=== PATIENT | female | born 2005 | race Caucasian/White ===

== ENCOUNTER 2024-06-05 01:37 | Emergency (ER) | payer BC ==
--- OUTSIDE RECORDS SUMMARY | 2024-06-05 01:43 | XMS REPORT | Continuity of Care Document ---
Author Name Unknown Address [address] [address] [place] [address] [facility] Address [address] [address] [place] [address] Care Team Providers Care News Videotape Editor Name Role Phone Shar Bustamante Attending Clinician Unavailable Katey Raphael Attending Clinician Unavailable Nicole Gaviria Attending Clinician UnavailMendoza Woodward Attending Clinician Unavailable GC_BVWC_Perrone_J Attending Clinician UnavailMONIE Olguin Attending Clinician Urbano Kaplan Attending Clinician Unavailab nails GC_BVWC_Perrone_J Admitting Clinician Unavailboo paulino Payers Payer Name Policy Type Policy Number Effective Date Expirati on Date Source [place] [id number] 2021 00:00:00 Allergies, Adverse Reactions, Alerts Allergy Name Allergy Type Status Severity Reaction(s) Onset Date Inactive Date Treating Clinician Comments Source No Known Drug Allergie s Allergy to substanc e Active 2022-03 14:01: 51 [facility] No Known Drug Allergie s DA Active U 2022-03 00:00: 00 [facility] Social History Social Habit Start Date Stop Date Quantity Comments Source Sex Assigned At 2005 00:00:00 2005 00:00:00 Female [facility] Smoking Status Start Date Stop Date Source Unknown if ever smoked Madis on [facility] Medications Ordered Medication Name Filled Medication Name Start Date Stop Date Current Medication? Ordering Clinician Indication Dosage Frequency Signature (SIG) Comments Components Source Promethazin e Hcl 03-31 15:28: 17 No 12.5MG Every 6 Hours [facility] Promethazin e Hcl 03-31 01:00: 00 No 12.5MG Every 6 Hours [facility] Acetaminoph en W/ Codeine (Tylenol/Co deine Elixir) 1 ML Ml 03-31 01:00: 00 No 5ML Q6H [facility] Procedures Procedure Date / Time Performed Performing Clinician Source CT Stone Protocol 2023-01-04 13:09:00 [facility] EKG 12 Lead in Emergency Room 2021-08-08 12:38:00 [facility] XR Chest Pa & Lat STANDARD 2021-08-08 11:46:00 [facility] Group A Streptococcus Screen (SOBEIDA) 2021-08-08 00:00:00 [facility] Encounters Start Date/Time End Date/Time Encounter Type Admission Type Attending Clinicians Care Facility Care Department Encounter ID Source 2024-01-21 23:52:00 2024-01-22 02:34:00 Emergency ER Shar Bustamante STLSJX STLSJX [id number] STLSJX 2023-01-05 00:15:00 2023-01-05 04:32:00 Emergency ER Katey Raphael STLSJM STLSJM [id number] [facility] 2023-01-04 12:31:00 2023-01-04 16:42:00 Departed Emergency [id number] [facility] EMERGENCY SERVICES [id number] [facility] 2023-01-04 12:31:00 2023-01-04 16:42:00 Emergency ER Nicole Gaviria STLSX STLSJX [id number] STLSJX 2021-08-08 11:09:00 2021-08-08 15:25:00 Emergency ER Mendoza Khan STLENARDM STLSM [id number] [facility] 2021-08-08 11:09:00 2021-08-08 15:25:00 Departed Emergency [id number] [facility]-EMERGEN CY SERVICES/MS [facility] [id number] [facility] 2021-06-03 03:51:00 2021-06-03 03:51:00 Outpatient GC_BVWC_Per rone_J PRIV PRIV [id number] [facility] 2021-02-08 18:11:00 2021-02-08 18:12:00 [id number] [facility] 2020-04-01 12:07:00 2020-04-01 16:17:00 Emergency ER Urbano Cast STLSJX STLSJX [id number] STLSJX 2020-03-31 10:18:00 2020-03-31 14:53:00 Emergency ER Urbano Cast STLSJX STLSJX [id number] STLSJX Results Test Description Test Time Test Comments Results Result Co mments Source PENDING 2 SCulture, [id number] 13:04:00* Test Item Value Reference Range Interpretation Comme nts Culture, Urine (test code = URC) Routine susceptibility testing of Staphylococcus Culture, Urine (test code = URC1) uncomplicated urinary tract infections. O:SSAP (test code = SSAP) Staphylococcus saprophyticus Culture, Urine (test code = URC1.1) QUANTITATION: Culture, Urine (test code = URC1.1) 50,000 TO 75,000 cfu/mL H [id number] 03:46:00* Test Item Value Reference Range Interpretation Comme nts Toxicology (test code = WADE) Not Detected NotDetected Toxicology (test code = PCP) Not Detected NotDetected Toxicology (test code = COCN) Not Detected NotDetected Toxicology (test code = METHAMPU) Not Detected NotDetected Toxicology (test code = OPIA) Not Detected NotDetected Toxicology (test code = AMPHU) Not Detected NotDetected Toxicology (test code = KIKE) Not Detected NotDetected Toxicology (test code = TRICY) Not Detected NotDetected Toxicology (test code = MTD) Not Detected NotDetected Toxicology (test code = LUCIANA) Not Detected NotDetected Toxicology (test code = OXYCOD) Not Detected NotDetected Toxicology (test code = PPX) Not Detected NotDetected Toxicology (test code = MTCUTOFF) See_Comment The [employer] Powerx Profile-V Panel for Qualitative Drugs ofAbuse assays are for presumptive screening testing only.The drug class and detection limits are as follows:Drug Class Detection LimitAmphetamine 500 ng/mL*Barbiturates 200 ng/mLBenzodiazepines 150 ng/mL*Cocaine 150 ng/mL*Methamphetamine 500 ng/mL*Methadone 200 ng/mL*Opiates 100 ng/mL*Oxycodone 100 ng/mLPCP 25 ng/mLPropoxyphene 300 ng/mLTricyclic Antidepressants 300 ng/mLCannabinoids (THC) 50 ng/mLTests which yield a presumptive positive result must betested using a more specific alternate chemical method inorder to obtain a confirmed analytical result. Additionalconfirmation and identification may be ordered on a routinebasis, if desired. Presumptive positive urines are held fortwo weeks. [Automated message] The system which generated this result transmitted reference range: . The reference range was not used to interpret this result as normal/abnormal. Prem Source: Urine Clean [id number] 03:40:00* Test Item Value Reference Range Interpretation Comme nts Urinalysis (test code = BHCGUT) Negative Negative Method of sensit ivity- INDETERMINANT: results should be repeated after 48-72 hrs POSITIVE: results may be detected as early as 1 day after the first missed period A dilute urine specimen may not contain representativelevels of hCG.If is still suspected, a first morning urinespecimen OR a random blood specimen should be obtainedfrom the patient 48-72 hours later and re-tested. Urinalysis (test code = PREGUSG) 1.020 1.002-1.036 N UHlmwgjalm7514-88-46 02:58:00* Test Item Value Reference Range Interpretation Comme nts Chemistry (test code = CK) 65 U/L 29-168 N SIs this test being ordered for a non-cardiac indication? YesUrinalysis 2023-01-05 02:05:00* Test Item Value Reference Range Interpretation Comme nts Urinalysis (test code = UACLR) Yellow Yellow Urinalysis (test code = UACLY) Cloudy Clear Urinalysis (test code = SPGR) 1.020 1.005-1.030 N Urinalysis (test code = ALIYAH) 8.5 5.0-9.0 N Urinalysis (test code = UALEU) Small Negative A Urinalysis (test code = UANIT) Positive Negative A Urinalysis (test code = PROUADIP) 30 mg/dL Neg-Trace A Urinalysis (test code = GLUCU) Negative mg/dL Negative Urinalysis (test code = KETU) 80 mg/dL Negative A Urinalysis (test code = UAUROB) 1.0 mg/dL Less than 2 Urinalysis (test code = UABIL) Negative Negative Urinalysis (test code = UABLD) Trace Negative A Urinalysis (test code = UARBC) 7-10 HPF 0-3 A Urinalysis (test code = UAWBC) Greater than 50 HPF 0-3 A Urinalysis (test code = UASQUAM) 11-20 HPF 0-3 A Urinalysis (test code = UABAC) 2+ HPF None Seen A HIndications to order a Urinalysis: Dysuria urgency frequencyUrine Source: Urine Clean CatchHCG ur [id number] 01:55:00* Test Item Value Reference Range Interpretation Comme [facility] Urine Test (test c ode = 2106-3) Negative Negative [facility] specific gravity measurement by nmctrjyvlrswz9094-86-12 01:55:00* Test Item Value Reference Range Interpretation Comme nts Urine Specific [place] (test code = 5810-7) 1.020 1.002-1.036 [facility] cannabinoids detection using 50 ng/mL hxwllf9466-92-60 01:55:00* Test Item Value Reference Range Interpretation Comme [facility] Urine Cannabinoids Screen (t est code = 89686-1) Not Detected NotDetected [facility] phencyclidine detection by screening method >25 ng/io2334-90-76 01:55:00* Test Item Value Reference Range Interpretation Comme [facility] Urine Phencyclidine Screen ( test code = 18454-5) Not Detected NotDetected [facility] cocaine detection by screening method 2023-01-05 01:55:00* Test Item Value Reference Range Interpretation Comme [facility] Urine Cocaine Metabolite Scr een (test code = 07594-8) Not Detected NotDetected [facility] Center[facility] methamphetamine detection by screening dknwfl2900-95-69 01:55:00* Test Item Value Reference Range Interpretation Comme nts Urine Methamphetamines Scree n (test code = 26453-0) Not Detected NotDetected [facility] opiates detection by screening method 2023-01-05 01:55:00* Test Item Value Reference Range Interpretation Comme nts Urine Opiates Screen (test c ode = 74180-9) Not Detected NotDetected [facility] CenterAmphetamines [Presence] in Urine by Screen method >500 ng/pH5797-20-25 01:55:00* Test Item Value Reference Range Interpretation Comme [facility] Urine Amphetamines Screen (t est code = 97499-6) Not Detected NotDeteCreedmoor Psychiatric CenterUrine benzodiazepines detection by screening bpfziw9823-83-66 01:55:00* Test Item Value Reference Range Interpretation Comme [facility] Urine Benzodiazepines Screen (test code = 96162-2) Not Detected NotDetected [facility] urine tricyclic antidepressants iwlwthqjs5380-51-51 01:55:00* Test Item Value Reference Range Interpretation Comme [facility] Ur Tricyclic Antidepressants Screen (test code = 87751-3) Not Detected NotDeNorthwell HealthUrine methadone detection by screening method 2023-01-05 01:55:00* Test Item Value Reference Range Interpretation Comme [facility] Urine Methadone Screen (test code = 72993-8) Not Detected NotDeNorthwell HealthBarbiturates [Presence] in Urine by Screen method >200 ng/qY6547-54-84 01:55:00* Test Item Value Reference Range Interpretation Comme [facility] Urine Barbiturates Screen (t est code = 34735-7) Not Detected NotDeNorthwell HealthUrine oxycodone screening [id number] 01:55:00* Test Item Value Reference Range Interpretation Comme [facility] Urine Oxycodone Screen (test code = 06942-3) Not Detected NotDeNorthwell HealthPropoxyphene + Norpropoxyphene [Presence] in Urine by Screen eztupu0428-09-12 01:55:00* Test Item Value Reference Range Interpretation Comme [facility] Urine Propoxyphene Screen (t est code = 36553-1) Not Detected NotDetected [facility] CenterDo Not [id number] 01:55:00* Test Item Value Reference Range Interpretation Comme [facility] Drug Screen Comment (test code = LOINC) See_Comment [Automated message] The system which generated this result transmitted reference range: . The reference range was not used to interpret this result as normal/abnormal. [facility] yhosu1525-77-59 01:55:00* Test Item Value Reference Range Interpretation Comme [facility] Urine Color (test code = 5778-6) Yellow Yellow [facility] nilgkst4250-15-63 01:55:00* Test Item Value Reference Range Interpretation Comme [facility] Urine Clarity (test code = 79674-3) Cloudy Clear [facility] pH measurement by automated test strip 2023-01-05 01:55:00* Test Item Value Reference Range Interpretation Comme [facility] Urine pH (test code = 87726-5) 8.5 5.0-9.0 [facility] leukocyte esterase detection by automated test taftj8576-71-38 01:55:00* Test Item Value Reference Range Interpretation Comme [facility] Urine Leukocyte Esterase (te st code = 24892-3) Small Negative [facility] CenterNitrite [Presence] in Urine by Test strip 2023-01-05 01:55:00* Test Item Value Reference Range Interpretation Comme [facility] Urine Nitrite (test code = 5802-4) Positive Negative [facility] protein measurement by automated test strip (mass/volume)2023-01-05 01:55:00* Test Item Value Reference Range Interpretation Comme [facility] Urine Protein (test code = 89296-8) 30 mg/dL Neg-Trace [facility] glucose measurement by test strip (mass/volume)2023-01-05 01:55:00* Test Item Value Reference Range Interpretation Comme [facility] Urine Glucose (UA) (test cod e = 5792-7) Negative mg/dL Negative [facility] ketones measurement by automated test strip (mass/volume)2023-01-05 01:55:00* Test Item Value Reference Range Interpretation Comme [facility] Urine Ketones (test code = 59585-4) 80 mg/dL Negative [facility] urobilinogen measurement (units/volume) by test pdans4813-78-79 01:55:00* Test Item Value Reference Range Interpretation Comme [facility] Urine Urobilinogen (test cod e = 73995-9) 1.0 mg/dL Less than 2 [facility] total bilirubin detection by automated test jporp4630-30-62 01:55:00* Test Item Value Reference Range Interpretation Comme nts Urine Bilirubin (test code = 39301-7) Negative Negative [facility] hemoglobin detection by automated test ejrks2239-08-85 01:55:00* Test Item Value Reference Range Interpretation Comme nts Urine Blood (test code = 51076-0) Trace Negative [facility] sediment erythrocyte count by microscopy (number/high power field)2023-01-05 01:55:00* Test Item Value Reference Range Interpretation Comme nts Urine RBC (test code = 91849-3) 7-10 HPF 0-3 [facility] CenterLeukocytes detection in urine sediment by light yyaagjiltn7211-87-93 01:55:00* Test Item Value Reference Range Interpretation Comme [facility] Urine WBC (test code = 88353-9) Greater than 50 HPF 0-3 [facility] CenterSquamous epithelial cells detection in urine sediment by light ihbaijpxoh4079-45-44 01:55:00* Test Item Value Reference Range Interpretation Comme [facility] Urine Squamous Epithelial Ce lls (test code = 70807-2) 11-20 HPF 0-3 [facility] CenterBacteria detection in urine sediment by light zfysjwycrv7155-79-34 01:55:00* Test Item Value Reference Range Interpretation Comme [facility] Urine Bacteria (test code = 03680-3) 2+ HPF None Seen [facility] CenterChemistry2023-10-19 01:39:00* Test Item Value Reference Range Interpretation Comme nts Chemistry (test code = NA-T) 141 mmol/L 136-145 N Chemistry (test code = K-T) 3.6 mmol/L 3.5-5.1 N Chemistry (test code = CL-T) 108 mmol/L 98-107 H Chemistry (test code = CO2-T) 22 mmol/L 22-29 N Chemistry (test code = ANGP) 15 mmol/L 10-20 N Chemistry (test code = BUN) 9 mg/dL 8.4-21.0 N Chemistry (test code = CREATT) 0.68 mg/dL 0.6-1.1 N Chemistry (test code = EGFRCR) 129 Reference Range for Estimated GFR: Greater than 90 mL/min/1.73 j8Lgzkhsgs eGFR is based on the CKD-EPI 2020 equation thatdoes not use a race coefficient. Chemistry (test code = GLU-T) 118 mg/dL 70-105 H Chemistry (test code = CA-T) 8.8 mg/dL 7.8-10.44 N Chemistry (test code = TBILI-T) 0.6 mg/dL 0.2-1.2 N Chemistry (test code = TP) 7.2 g/dL 6.0-8.3 N Chemistry (test code = ALB) 4.4 g/dL 3.5-5.0 N Chemistry (test code = GLOB) 2.8 g/dL 2.4-3.5 N Chemistry (test code = AG) 1.6 g/dL 1.2-2.2 N Chemistry (test code = ALP) 54 U/L 40-100 N Chemistry (test code = AST) 11 U/L 5-30 N Chemistry (test code = ALT) 9 U/L 8-55 N S PJisklvgto1758-82-87 01:39:00* Test Item Value Reference Range Interpretation Comme [facility] Chemistry (test code = LIP) 9 U/L 8-78 N S SChemistry - Umxdzlx9669-79-88 01:34:00* Test Item Value Reference Range Interpretation Comme [facility] Chemistry - Lactate (test co de = LACTSEP-T) 1.1 mmol/L 0.5-2.2 N CQwliewzkdt6496-64-49 01:23:00* Test Item Value Reference Range Interpretation Comme [facility] Hematology (test code = WBCT) 11.9 10x3/uL 4.8-10.8 H Hematology (test code = RBCT) 4.33 mill/uL 4.00-5.20 N Hematology (test code = HGBT) 13.0 g/dL 12.0-16.0 N Hematology (test code = HCTT) 39.0 % 36.0-47.0 N Hematology (test code = MCV) 90.1 fl 78.0-98.0 N Hematology (test code = MCH) 30.1 pg 25.0-35.0 N Hematology (test code = MCHC) 33.4 g/dL 32.0-36.0 N Hematology (test code = RDW) 12.1 % 11.5-14.5 N Hematology (test code = PLTT) 239 10x3/uL 130-400 N Hematology (test code = MPV) 9.0 fL 7.4-10.4 N Hematology (test code = %NEUT) 84.2 % 31.0-61.0 H Hematology (test code = %LYMPH) 9.3 % 28.0-48.0 L Hematology (test code = %MONO) 5.7 % 0.0-4.0 H Hematology (test code = %EOS) 0.1 % 0.0-10.0 N Hematology (test code = %BASO) 0.7 % 0.0-1.0 N Hematology (test code = NEUT#) 10.0 thou/uL 1.40-6.50 H Hematology (test code = LYMPH#) 1.1 thou/uL 1.20-3.40 L Hematology (test code = MONO#) 0.7 thou/uL 0.11-0.59 H Hematology (test code = EOS#) 0.0 thou/uL 0.0-0.7 N Hematology (test code = BASO#) 0.1 thou/uL 0.0-0.2 N SSerum or plasma sodium measurement (moles/volume)2023-01-05 01:10:00* Test Item Value Reference Range Interpretation Comme nts Sodium Level (test code = 2951-2) 141 mmol/L 136-145 [facility] potassium measurement (moles/volume)2023-01-05 01:10:00* Test Item Value Reference Range Interpretation Comme nts Potassium Level (test code = 2823-3) 3.6 mmol/L 3.5-5.1 [facility] CenterSer[facility] or plasma chloride measurement (moles/volume)2023-01-05 01:10:00* Test Item Value Reference Range Interpretation Comme nts Chloride Level (test code = 2075-0) 108 mmol/L 98-107 [facility] carbon dioxide, total measurement (moles/volume)2023-01-05 01:10:00* Test Item Value Reference Range Interpretation Comme nts Carbon Dioxide Level (test c ode = 2027-9) 22 mmol/L 22-29 [facility] plasma anion [id number] 01:10:00* Test Item Value Reference Range Interpretation Comme nts Anion Gap (test code = 36568-1) 15 mmol/L 10-20 [facility] urea nitrogen measurement (mass/volume)2023-01-05 01:10:00* Test Item Value Reference Range Interpretation Comme nts Blood Urea Nitrogen (test co de = 3094-0) 9 mg/dL 8.4-21.0 [facility] or plasma creatinine measurement (mass/volume)2023-01-05 01:10:00* Test Item Value Reference Range Interpretation Comme nts Creatinine (test code = 2160-0) 0.68 mg/dL 0.6-1.1 [facility] CareGlomerular filtration rate/1.73 sq M.predicted [Volume Rate/Area] in Serum, Plasma [id number] 01:10:00* Test Item Value Reference Range Interpretation Comme [facility] Estimated GFR (CKD-EPI 2020) (test code = 26032-6) 129 [facility] CareGlucose [Mass/volume] in Serum or Plasma 2023-01-05 01:10:00* Test Item Value Reference Range Interpretation Comme nts Glucose Level (test code = 2345-7) 118 mg/dL 70-105 [facility] or plasma calcium measurement (mass/volume)2023-01-05 01:10:00* Test Item Value Reference Range Interpretation Comme nts Calcium Level (test code = 10228-3) 8.8 mg/dL 7.8-10.44 [facility] total bilirubin measurement (mass/volume)2023-01-05 01:10:00* Test Item Value Reference Range Interpretation Comme nts Total Bilirubin (test code = 1975-2) 0.6 mg/dL 0.2-1.2 [facility] or plasma protein measurement (mass/volume)2023-01-05 01:10:00* Test Item Value Reference Range Interpretation Comme nts Serum Total Protein (test co de = 2885-2) 7.2 g/dL 6.0-8.3 [facility] or plasma albumin measurement by bromocresol green (BCG) dye binding method ([id number] 01:10:00* Test Item Value Reference Range Interpretation Comme nts Albumin (test code = 33243-2) 4.4 g/dL 3.5-5.0 [facility] CareGlobulin [Mass/volume] in Serum by calculation 2023-01-05 01:10:00* Test Item Value Reference Range Interpretation Comme nts Globulin (test code = 94514-6) 2.8 g/dL 2.4-3.5 [facility] CenterAlbum[facility]/Globulin [Mass Ratio] in Serum or Plasma 2023-01-05 01:10:00* Test Item Value Reference Range Interpretation Comme [facility] Albumin/Globulin Ratio (test code = 1759-0) 1.6 g/dL 1.2-2.2 [facility] CenterAlkaline phosphatase [Enzymatic activity/volume] in Serum or Pbipow0128-63-41 01:10:00* Test Item Value Reference Range Interpretation Comme nts Alkaline Phosphatase (test c ode = 6768-6) 54 U/L 40-100 [facility] or plasma aspartate aminotransferase measurement (enzymatic activity/volume)2023-01-05 01:10:00* Test Item Value Reference Range Interpretation Comme nts Aspartate Amino Transf (AST/ SGOT) (test code = 1920-8) 11 U/L 5-30 [facility] CenterCreatine kinase [Enzymatic activity/volume] in Serum or Bcyhvn4150-55-03 01:10:00* Test Item Value Reference Range Interpretation Comme nts Creatine Kinase (test code = 2157-6) 65 U/L 29-168 [facility] or plasma alanine aminotransferase measurement without P-5'-P (enzymatic ofdcso6719-40-13 01:10:00* Test Item Value Reference Range Interpretation Comme nts Alanine Aminotransferase (AL T/SGPT) (test code = 1744-2) 9 U/L 8-55 [facility] CenterSerum or plasma lipase measurement (enzymatic activity/volume)2023-01-05 01:10:00* Test Item Value Reference Range Interpretation Comme [facility] Lipase (test code = 3040-3) 9 U/L 8-78 [facility] CenterSerum or plasma lactate measurement (moles/volume)2023-01-05 01:10:00* Test Item Value Reference Range Interpretation Comme [facility] Lactic Acid Level (test code = 2524-7) 1.1 mmol/L 0.5-2.2 [facility] CenterLeukocytes [#/volume] in Blood by Automated amzka6836-35-06 01:10:00* Test Item Value Reference Range Interpretation Comme [facility] White Blood Count (test code = 6690-2) 11.9 10x3/uL 4.8-10.8 [facility] CenterBlst[facility] erythrocytes automated count (number/volume)2023-01-05 01:10:00* Test Item Value Reference Range Interpretation Comme [facility] Red Blood Count (test code = 789-8) 4.33 mill/uL 4.00-5.20 [facility] CenterBlood hemoglobin measurement (mass/volume) 2023-01-05 01:10:00* Test Item Value Reference Range Interpretation Comme [facility] Hemoglobin (test code = 718-7) 13.0 g/dL 12.0-16.0 [facility] CenterAutomated erythrocyte mean corpuscular volume 2023-01-05 01:10:00* Test Item Value Reference Range Interpretation Comme [facility] Mean Corpuscular Volume (mariama t code = 787-2) 90.1 fl 78.0-98.0 [facility] CenterAutomated erythrocyte mean corpuscular hemoglobin (mass per erythrocyte)2023-01-05 01:10:00* Test Item Value Reference Range Interpretation Comme [facility] Mean Corpuscular Hemoglobin (test code = 785-6) 30.1 pg 25.0-35.0 [facility] CenterAutomated erythrocyte mean corpuscular hemoglobin concentration measurement (mass/erd4824-51-52 01:10:00* Test Item Value Reference Range Interpretation Comme [facility] Mean Corpuscular Hemoglobin Concent (test code = 786-4) 33.4 g/dL 32.0-36.0 [facility] erythrocyte distribution width ratio 2023-01-05 01:10:00* Test Item Value Reference Range Interpretation Comme [facility] Red Cell Distribution Width (test code = 788-0) 12.1 % 11.5-14.5 [facility] CenterAutomated blood platelet count (count/volume) 2023-01-05 01:10:00* Test Item Value Reference Range Interpretation Comme [facility] Platelet Count (test code = 777-3) 239 10x3/uL 130-400 [facility] CenterAutat[facility] kannapolised blood platelet mean [id number] 01:10:00* Test Item Value Reference Range Interpretation Comme [facility] Mean Platelet Volume (test c ode = 69228-2) 9.0 fL 7.4-10.4 [facility]/100 leukocytes 2023-01-05 01:10:00* Test Item Value Reference Range Interpretation Comme [facility] Neutrophils % (test code = 770-8) 84.2 % 31.0-61.0 [facility] CenterLymphocytes/100 leukocytes in Blood by Automated [id number] 01:10:00* Test Item Value Reference Range Interpretation Comme [facility] Lymphocytes % (test code = 736-9) 9.3 % 28.0-48.0 [facility] monocytes/100 leukocytes 2023-01-05 01:10:00* Test Item Value Reference Range Interpretation Comme [facility] Monocytes % (test code = 5905-5) 5.7 % 0.0-4.0 [facility] CenterAutomated blood eosinophils/100 leukocytes 2023-01-05 01:10:00* Test Item Value Reference Range Interpretation Comme [facility] Eosinophils % (test code = 713-8) 0.1 % 0.0-10.0 [facility] CenterAutom[facility] blood basophils/100 leukocytes 2023-01-05 01:10:00* Test Item Value Reference Range Interpretation Comme [facility] Basophils % (test code = 706-2) 0.7 % 0.0-1.0 [facility] neutrophils automated count (number/volume)2023-01-05 01:10:00* Test Item Value Reference Range Interpretation Comme [facility] Neutrophils # (test code = 751-8) 10.0 thou/uL 1.40-6.50 [facility] CenterLymphocytes [#/volume] in Blood by Automated [id number] 01:10:00* Test Item Value Reference Range Interpretation Comme [facility] Lymphocytes # (test code = 731-0) 1.1 thou/uL 1.20-3.40 [facility] monocytes automated count (number/volume) 2023-01-05 01:10:00* Test Item Value Reference Range Interpretation Comme [facility] Monocytes # (test code = 742-7) 0.7 thou/uL 0.11-0.59 [facility] eosinophils automated count (count/volume) 2023-01-05 01:10:00* Test Item Value Reference Range Interpretation Comme [facility] Eosinophils # (test code = 711-2) 0.0 thou/uL 0.0-0.7 [facility] CenterAutom[facility] blood basophil count (count/volume) 2023-01-05 01:10:00* Test Item Value Reference Range Interpretation Comme [facility] Basophils # (test code = 704-7) 0.1 thou/uL 0.0-0.2 [facility] CenterHCG ur [id number] 13:14:00* Test Item Value Reference Range Interpretation Comme nts Urine Test (test c ode = 2106-3) Negative Negative [facility] CenterUrine specific gravity measurement by [id number] 13:14:00* Test Item Value Reference Range Interpretation Comme nts Urine Specific [place] (test code = 5810-7) 1.020 1.002-1.036 [facility] CenterUrine [id number] 13:14:00* Test Item Value Reference Range Interpretation Comme [facility] Urine Color (test code = 5778-6) Yellow Yellow [facility] CenterUrine [id number] 13:14:00* Test Item Value Reference Range Interpretation Comme [facility] Urine Clarity (test code = 80232-2) Cloudy Clear [facility] pH measurement by automated test strip 2023-01-04 13:14:00* Test Item Value Reference Range Interpretation Comme [facility] Urine pH (test code = 48654-0) 6.0 5.0-9.0 [facility] leukocyte esterase detection by automated test [id number] 13:14:00* Test Item Value Reference Range Interpretation Comme [facility] Urine Leukocyte Esterase ( st code = 62799-9) 500 Negative [facility] CenterNitrite [Presence] in Urine by Test strip 2023-01-04 13:14:00* Test Item Value Reference Range Interpretation Comme [facility] Urine Nitrite (test code = 5802-4) Negative Negative [facility] protein measurement by automated test strip (mass/volume)2023-01-04 13:14:00* Test Item Value Reference Range Interpretation Comme [facility] Urine Protein (test code = 67286-3) 30 mg/dl Neg-Trace [facility] glucose measurement by test strip (mass/volume)2023-01-04 13:14:00* Test Item Value Reference Range Interpretation Comme [facility] Urine Glucose (UA) (test cod e = 5792-7) Normal mg/dL Negative [facility] ketones measurement by automated test strip (mass/volume)2023-01-04 13:14:00* Test Item Value Reference Range Interpretation Comme [facility] Urine Ketones (test code = 19567-0) 150 mg/dL Negative [facility] urobilinogen measurement (units/volume) by test [id number] 13:14:00* Test Item Value Reference Range Interpretation Comme [facility] Urine Urobilinogen (test cod e = 48288-0) Normal mg/dL Less than 2 [facility] total bilirubin detection by automated test [id number] 13:14:00* Test Item Value Reference Range Interpretation Comme [facility] Urine Bilirubin (test code = 20972-0) Neg Negative [facility] hemoglobin detection by automated test [id number] 13:14:00* Test Item Value Reference Range Interpretation Comme nts Urine Blood (test code = 21478-5) 25 Negative [facility] CenterUrine sediment erythrocyte count by microscopy (number/high power field)2023-01-04 13:14:00* Test Item Value Reference Range Interpretation Comme nts Urine RBC (test code = 85677-3) 0-3 HPF 0-3 [facility] CenterLeukocytes detection in urine sediment by light [id number] 13:14:00* Test Item Value Reference Range Interpretation Comme nts Urine WBC (test code = 27298-9) 11-20 HPF 0-3 [facility] CenterSquamous epithelial cells detection in urine sediment by light dyykhqsigj7309-36-38 13:14:00* Test Item Value Reference Range Interpretation Comme [facility] Urine Squamous Epithelial Ce lls (test code = 66187-6) 0-3 HPF 0-3 [facility] CenterBacteria detection in urine sediment by light [id number] 13:14:00* Test Item Value Reference Range Interpretation Comme [facility] Urine Bacteria (test code = 41968-0) 3+ HPF None Seen [facility] CenterDo Not [id number] 13:14:00* Test Item Value Reference Range Interpretation Comme nts Urine Culture Reflexed (test code = LOINC) Yes [facility] sodium measurement (moles/volume)2023-01-04 13:02:00* Test Item Value Reference Range Interpretation Comme nts Sodium Level (test code = 2951-2) 139 mmol/L 136-145 [facility] potassium measurement (moles/volume)2023-01-04 13:02:00* Test Item Value Reference Range Interpretation Comme nts Potassium Level (test code = 2823-3) 3.7 mmol/L 3.5-5.1 [facility] or plasma chloride measurement (moles/volume)2023-01-04 13:02:00* Test Item Value Reference Range Interpretation Comme nts Chloride Level (test code = 2075-0) 103 mmol/L 98-107 [facility] or plasma carbon dioxide, total measurement (moles/volume)2023-01-04 13:02:00* Test Item Value Reference Range Interpretation Comme nts Carbon Dioxide Level (test c ode = 2027-9) 21 mmol/L 22-29 [facility] or plasma anion [id number] 13:02:00* Test Item Value Reference Range Interpretation Comme nts Anion Gap (test code = 95785-0) 19 mmol/L 10-20 [facility] urea nitrogen measurement (mass/volume)2023-01-04 13:02:00* Test Item Value Reference Range Interpretation Comme [facility] Blood Urea Nitrogen (test co de = 3094-0) 10 mg/dL 8.4-21.0 [facility] or plasma creatinine measurement (mass/volume)2023-01-04 13:02:00* Test Item Value Reference Range Interpretation Comme [facility] Creatinine (test code = 2160-0) 0.76 mg/dL 0.6-1.1 [facility] CareGlomerular filtration rate/1.73 sq M.predicted [Volume Rate/Area] in Serum, Plasma [id number] 13:02:00* Test Item Value Reference Range Interpretation Comme [facility] Estimated GFR (CKD-EPI 2020) (test code = 03091-9) 116 [facility] CareGlucose [Mass/volume] in Serum or Plasma 2023-01-04 13:02:00* Test Item Value Reference Range Interpretation Comme nts Glucose Level (test code = 2345-7) 114 mg/dL 70-105 [facility] or plasma calcium measurement (mass/volume)2023-01-04 13:02:00* Test Item Value Reference Range Interpretation Comme [facility] Calcium Level (test code = 72877-2) 10.4 mg/dL 7.8-10.44 [facility] or plasma total bilirubin measurement (mass/volume)2023-01-04 13:02:00* Test Item Value Reference Range Interpretation Comme nts Total Bilirubin (test code = 1975-2) 0.7 mg/dL 0.2-1.2 [facility] or plasma protein measurement (mass/volume)2023-01-04 13:02:00* Test Item Value Reference Range Interpretation Comme [facility] Serum Total Protein (test co de = 2885-2) 8.7 g/dL 6.0-8.3 [facility] or plasma albumin measurement by bromocresol green (BCG) dye binding method ([id number] 13:02:00* Test Item Value Reference Range Interpretation Comme nts Albumin (test code = 80857-9) 5.3 g/dL 3.5-5.0 [facility] CareGlobulin [Mass/volume] in Serum by calculation 2023-01-04 13:02:00* Test Item Value Reference Range Interpretation Comme nts Globulin (test code = 46685-2) 3.4 g/dL 2.4-3.5 [facility] CenterAlbumin/Globulin [Mass Ratio] in Serum or Plasma 2023-01-04 13:02:00* Test Item Value Reference Range Interpretation Comme [facility] Albumin/Globulin Ratio (test code = 1759-0) 1.6 g/dL 1.2-2.2 [facility] CenterAlkaline phosphatase [Enzymatic activity/volume] in Serum or [id number] 13:02:00* Test Item Value Reference Range Interpretation Comme [facility] Alkaline Phosphatase (test c ode = 6768-6) 58 U/L 40-100 [facility] or plasma aspartate aminotransferase measurement (enzymatic activity/volume)2023-01-04 13:02:00* Test Item Value Reference Range Interpretation Comme [facility] Aspartate Amino Transf (AST/ SGOT) (test code = 1920-8) 13 U/L 5-30 [facility]um or plasma alanine aminotransferase measurement without P-5'-P (enzymatic [id number] 13:02:00* Test Item Value Reference Range Interpretation Comme [facility] Alanine Aminotransferase (AL T/SGPT) (test code = 1744-2) 12 U/L 8-55 [facility]um or plasma lipase measurement (enzymatic activity/volume)2023-01-04 13:02:00* Test Item Value Reference Range Interpretation Comme [facility] Lipase (test code = 3040-3) 8 U/L 8-78 [facility] CenterLeukocytes [#/volume] in Blood by Automated [id number] 13:02:00* Test Item Value Reference Range Interpretation Comme [facility] White Blood Count (test code = 6690-2) 16.7 10x3/uL 3.5-10.5 [facility] CenterBlst[facility] erythrocytes automated count (number/volume)2023-01-04 13:02:00* Test Item Value Reference Range Interpretation Comme [facility] Red Blood Count (test code = 789-8) 4.97 10x6/uL 3.90-5.03 [facility] CenterBlood hemoglobin measurement (mass/volume) 2023-01-04 13:02:00* Test Item Value Reference Range Interpretation Comme [facility] Hemoglobin (test code = 718-7) 15.0 g/dL 12.0-15.5 [facility] CenterAutomated erythrocyte mean corpuscular volume 2023-01-04 13:02:00* Test Item Value Reference Range Interpretation Comme [facility] Mean Corpuscular Volume (mariama t code = 787-2) 87.5 fl 81.6-98.3 [facility] CenterAutomated erythrocyte mean corpuscular hemoglobin (mass per erythrocyte)2023-01-04 13:02:00* Test Item Value Reference Range Interpretation Comme [facility] Mean Corpuscular Hemoglobin (test code = 785-6) 30.2 pg 27.0-33.0 [facility] CenterAutomated erythrocyte mean corpuscular hemoglobin concentration measurement (mass/[id number] 13:02:00* Test Item Value Reference Range Interpretation Comme [facility] Mean Corpuscular Hemoglobin Concent (test code = 786-4) 34.5 g/dL 32.0-36.0 [facility] CenterAutomated erythrocyte distribution width ratio 2023-01-04 13:02:00* Test Item Value Reference Range Interpretation Comme [facility] Red Cell Distribution Width (test code = 788-0) 12.7 % 11.5-14.5 [facility] CareAutom[facility] blood platelet count (count/volume) 2023-01-04 13:02:00* Test Item Value Reference Range Interpretation Comme [facility] Platelet Count (test code = 777-3) 323 10x3/uL 150-450 [facility] CenterAutomated blood platelet mean [id number] 13:02:00* Test Item Value Reference Range Interpretation Comme [facility] Mean Platelet Volume (test c ode = 48796-9) 10.7 fl 7.4-10.4 [facility] CenterAutomated blood neutrophils/100 leukocytes 2023-01-04 13:02:00* Test Item Value Reference Range Interpretation Comme [facility] Neutrophils % (test code = 770-8) 87.1 % 40.0-75.0 [facility] CenterLymphocytes/100 leukocytes in Blood by Automated [id number] 13:02:00* Test Item Value Reference Range Interpretation Comme [facility] Lymphocytes % (test code = 736-9) 6.0 % 18.0-47.0 [facility] CenterAutomated blood monocytes/100 leukocytes 2023-01-04 13:02:00* Test Item Value Reference Range Interpretation Comme [facility] Monocytes % (test code = 5905-5) 6.1 % 0.0-10.0 [facility] CenterAutomated blood eosinophils/100 leukocytes 2023-01-04 13:02:00* Test Item Value Reference Range Interpretation Comme [facility] Eosinophils % (test code = 713-8) 0.1 % 0.0-6.0 [facility] CenterAutomated blood basophils/100 leukocytes 2023-01-04 13:02:00* Test Item Value Reference Range Interpretation Comme [facility] Basophils % (test code = 706-2) 0.2 % 0.0-2.0 [facility] CenterBlood neutrophils automated count (number/volume)2023-01-04 13:02:00* Test Item Value Reference Range Interpretation Comme [facility] Neutrophils # (test code = 751-8) 14.5 10x3/uL 1.5-8.4 [facility] CenterBlood monocytes automated count (number/volume) 2023-01-04 13:02:00* Test Item Value Reference Range Interpretation Comme nts Monocytes # (test code = 742-7) 1.0 10x3/uL 0.0-1.1 [facility] CenterBlood eosinophils automated count (count/volume) 2023-01-04 13:02:00* Test Item Value Reference Range Interpretation Comme nts Eosinophils # (test code = 711-2) 0.0 10x3/uL 0.0-0.5 [facility] CenterAutomated blood basophil count (count/volume) 2023-01-04 13:02:00* Test Item Value Reference Range Interpretation Comme nts Basophils # (test code = 704-7) 0.0 10x3/uL 0.0-0.2 [facility] CenterCulture, Strep Group A [id number] 16:38:00* Test Item Value Reference Range Interpretation Comme nts Culture, Strep Group A Rflx (test code = STRPACULT) STRPCULT Culture, Strep Group A Rflx (test code = STRPACULT1) N [id number] 12:30:00* Test Item Value Reference Range Interpretation Comme nts Chemistry (test code = NA-T) 140 mmol/L 136-145 N Chemistry (test code = K-T) 4.0 mmol/L 3.5-5.1 N Chemistry (test code = CL) 106 mmol/L 98-107 N Chemistry (test code = CO2) 24 mmol/L 22-29 N Chemistry (test code = ANGP) 14 mmol/L 10-20 N Chemistry (test code = BUN) 5 mg/dL 8.4-21.0 L Chemistry (test code = CREATT) 0.71 mg/dL 0.6-1.1 N Chemistry (test code = GLU-T) 102 mg/dL 70-105 N Chemistry (test code = CA) 9.2 mg/dL 7.8-10.44 N Chemistry (test code = TBILI-T) 0.3 mg/dL 0.2-1.2 N Chemistry (test code = TP) 7.8 g/dL 6.0-8.3 N Chemistry (test code = ALB) 4.5 g/dL 3.5-5.0 N Chemistry (test code = GLOB) 3.3 g/dL 2.4-3.5 N Chemistry (test code = AG) 1.4 g/dL 1.2-2.2 N Chemistry (test code = ALP) 67 U/L 40-100 N Chemistry (test code = AST) 21 U/L 5-30 N Chemistry (test code = ALT) 22 U/L 8-55 N [id number] 12:22:00* Test Item Value Reference Range Interpretation Comme nts Hematology (test code = WBCT) 8.2 thou/uL 4.8-10.8 N Hematology (test code = RBCT) 4.83 mill/uL 4.00-5.20 N Hematology (test code = HGBT) 13.2 g/dL 12.0-16.0 N Hematology (test code = HCTT) 41.6 % 36.0-47.0 N Hematology (test code = MCV) 86.1 fL 78.0-102.0 N Hematology (test code = MCH) 27.3 pg 25.0-35.0 N Hematology (test code = MCHC) 31.7 g/dL 32.0-36.0 L Hematology (test code = RDW) 12.8 % 11.5-14.5 N Hematology (test code = PLTT) 181 thou/uL 130-400 N Hematology (test code = MPV) 10.4 fL 7.4-10.4 N Hematology (test code = %NEUT) 83.8 % 31.0-61.0 H Hematology (test code = %LYMPH) 7.4 % 28.0-48.0 L Hematology (test code = %MONO) 7.4 % 0.0-4.0 H Hematology (test code = %EOS) 0.6 % 0.0-10.0 N Hematology (test code = %BASO) 0.9 % 0.0-1.0 N Hematology (test code = NEUT#) 6.9 thou/uL 1.40-6.50 H Hematology (test code = LYMPH#) 0.6 thou/uL 1.20-3.40 L Hematology (test code = MONO#) 0.6 thou/uL 0.11-0.59 H Hematology (test code = EOS#) 0.0 thou/uL 0.0-0.7 N Hematology (test code = BASO#) 0.1 thou/uL 0.0-0.2 N Influenza A+B Ag [id number] 12:20:00* Test Item Value Reference Range Interpretation Comme nts Influenza A+B Ag Screen (test code = FLU) The rapid Flu A+B test can distinguish between influenza A Influenza A+B Ag Screen (test code = FLU1) follow up confirmatory testing is warranted. Influenza A+B Ag Screen (test code = FLU1) FLUB A Influenza A+B Ag Screen (test code = FLU1) N A Strep Group A [id number] 12:20:00* Test Item Value Reference Range Interpretation Comme nts Strep Group A Screen (test c ode = STRP) STRPANEG1 Strep Group A Screen (test c ode = STRP1) N Strep Group A Screen (test c ode = STRP1) STRPTH Serum or plasma sodium measurement (moles/volume)2021-08-08 12:10:00* Test Item Value Reference Range Interpretation Comme [facility] Sodium Level (test code = 2951-2) 140 mmol/L 136-145 [facility] or plasma potassium measurement (moles/volume) 2021-08-08 12:10:00* Test Item Value Reference Range Interpretation Comme [facility] Potassium Level (test code = 2823-3) 4.0 mmol/L 3.5-5.1 [facility] or plasma chloride measurement (moles/volume) 2021-08-08 12:10:00* Test Item Value Reference Range Interpretation Comme [facility] Chloride Level (test code = 2075-0) 106 mmol/L 98-107 [facility] or plasma carbon dioxide, total measurement (moles/volume)2021-08-08 12:10:00* Test Item Value Reference Range Interpretation Comme nts Carbon Dioxide Level (test c ode = 2028-9) 24 mmol/L 22-29 [facility] or plasma anion [id number] 12:10:00* Test Item Value Reference Range Interpretation Comme nts Anion Gap (test code = 75497-5) 14 mmol/L 10-20 [facility] or plasma urea nitrogen measurement (mass/volume)2021-08-08 12:10:00* Test Item Value Reference Range Interpretation Comme nts Blood Urea Nitrogen (test co de = 3094-0) 5 mg/dL 8.4-21.0 [facility] or plasma creatinine measurement (mass/volume) 2021-08-08 12:10:00* Test Item Value Reference Range Interpretation Comme nts Creatinine (test code = 2160-0) 0.71 mg/dL 0.6-1.1 [facility] [[facility]/volume] in Serum or [id number] 12:10:00* Test Item Value Reference Range Interpretation Comme nts Glucose Level (test code = 2345-7) 102 mg/dL 70-105 [facility] or plasma calcium measurement (mass/volume) 2021-08-08 12:10:00* Test Item Value Reference Range Interpretation Comme nts Calcium Level (test code = 08470-0) 9.2 mg/dL 7.8-10.44 [facility] or plasma total bilirubin measurement (mass/volume)2021-08-08 12:10:00* Test Item Value Reference Range Interpretation Comme [facility] Total Bilirubin (test code = 1975-2) 0.3 mg/dL 0.2-1.2 [facility] or plasma protein measurement (mass/volume) 2021-08-08 12:10:00* Test Item Value Reference Range Interpretation Comme nts Serum Total Protein (test co de = 2885-2) 7.8 g/dL 6.0-8.3 [facility] or plasma albumin measurement by bromocresol green (BCG) dye binding method ([id number] 12:10:00* Test Item Value Reference Range Interpretation Comme nts Albumin (test code = 46024-1) 4.5 g/dL 3.5-5.0 [facility]Glob[facility] [Mass/volume] in Serum by calculation 2021-08-08 12:10:00* Test Item Value Reference Range Interpretation Comme nts Globulin (test code = 33857-0) 3.3 g/dL 2.4-3.5 [facility] HospitalAlbum[facility]/Globulin [Mass Ratio] in Serum or Plasma 2021-08-08 12:10:00* Test Item Value Reference Range Interpretation Comme [facility] Albumin/Globulin Ratio (test code = 1759-0) 1.4 g/dL 1.2-2.2 [facility] HospitalAlkaline phosphatase [Enzymatic activity/volume] in Serum or [id number] 12:10:00* Test Item Value Reference Range Interpretation Comme nts Alkaline Phosphatase (test c ode = 6768-6) 67 U/L 40-100 [facility] or plasma aspartate aminotransferase measurement (enzymatic activity/volume)2021-08-08 12:10:00* Test Item Value Reference Range Interpretation Comme [facility] Aspartate Amino Transf (AST/ SGOT) (test code = 1920-8) 21 U/L 5-30 [facility] alanine aminotransferase measurement without P-5'-P (enzymatic [id number] 12:10:00* Test Item Value Reference Range Interpretation Comme [facility] Alanine Aminotransferase (AL T/SGPT) (test code = 1744-2) 22 U/L 8-55 [facility] HospitalLeukocytes [#/volume] in Blood by Automated count 2021-08-08 12:10:00* Test Item Value Reference Range Interpretation Comme [facility] White Blood Count (test code = 6690-2) 8.2 thou/uL 4.8-10.8 [facility] erythrocytes automated count (number/volume) 2021-08-08 12:10:00* Test Item Value Reference Range Interpretation Comme [facility] Red Blood Count (test code = 789-8) 4.83 mill/uL 4.00-5.20 [facility] hemoglobin measurement (mass/volume)2021-08-08 12:10:00* Test Item Value Reference Range Interpretation Comme [facility] Hemoglobin (test code = 718-7) 13.2 g/dL 12.0-16.0 [facility] HospitalAutomated erythrocyte mean corpuscular volume 2021-08-08 12:10:00* Test Item Value Reference Range Interpretation Comme [facility] Mean Corpuscular Volume (mariama t code = 787-2) 86.1 fL 78.0-102.0 [facility] mean corpuscular hemoglobin (mass per erythrocyte)2021-08-08 12:10:00* Test Item Value Reference Range Interpretation Comme [facility] Mean Corpuscular Hemoglobin (test code = 785-6) 27.3 pg [facility].0 [facility] corpuscular hemoglobin concentration measurement (mass/[id number] 12:10:00* Test Item Value Reference Range Interpretation Comme [facility] Mean Corpuscular Hemoglobin Concent (test code = 786-4) 31.7 g/dL 32.0-36.0 [facility] erythrocyte distribution width ratio 2021-08-08 12:10:00* Test Item Value Reference Range Interpretation Comme [facility] Red Cell Distribution Width (test code = 788-0) 12.8 % 11.5-14.5 [facility] blood platelet count (count/volume) 2021-08-08 12:10:00* Test Item Value Reference Range Interpretation Comme [facility] Platelet Count (test code = 777-3) 181 thou/uL 130-400 [facility] blood platelet mean [id number] 12:10:00* Test Item Value Reference Range Interpretation Comme [facility] Mean Platelet Volume (test c ode = 15963-4) 10.4 fL 7.4-10.4 [facility] blood neutrophils/100 [id number] 12:10:00* Test Item Value Reference Range Interpretation Comme [facility] Neutrophils % (test code = 770-8) 83.8 % 31.0-61.0 [facility] leukocytes in Blood by Automated count 2021-08-08 12:10:00* Test Item Value Reference Range Interpretation Comme [facility] Lymphocytes % (test code = 736-9) 7.4 % 28.0-48.0 [facility] monocytes/100 [id number] 12:10:00* Test Item Value Reference Range Interpretation Comme [facility] Monocytes % (test code = 5905-5) 7.4 % 0.0-4.0 [facility] blood eosinophils/100 [id number] 12:10:00* Test Item Value Reference Range Interpretation Comme [facility] Eosinophils % (test code = 713-8) 0.6 % 0.0-10.0 [facility] basophils/100 [id number] 12:10:00* Test Item Value Reference Range Interpretation Comme [facility] Basophils % (test code = 706-2) 0.9 % 0.0-1.0 [facility] neutrophils automated count (number/volume) 2021-08-08 12:10:00* Test Item Value Reference Range Interpretation Comme [facility] Neutrophils # (test code = 751-8) 6.9 thou/uL 1.40-6.50 [facility] [#/volume[facility] in Blood by Automated count 2021-08-08 12:10:00* Test Item Value Reference Range Interpretation Comme [facility] Lymphocytes # (test code = 731-0) 0.6 thou/uL 1.20-3.40 [facility] monocytes automated count (number/volume) 2021-08-08 12:10:00* Test Item Value Reference Range Interpretation Comme [facility] Monocytes # (test code = 742-7) 0.6 thou/uL 0.11-0.59 [facility] eosinophils automated count (count/volume) 2021-08-08 12:10:00* Test Item Value Reference Range Interpretation Comme [facility] Eosinophils # (test code = 711-2) 0.0 thou/uL 0.0-0.7 [facility] basophil count (count/volume) 2021-08-08 12:10:00* Test Item Value Reference Range Interpretation Comme [facility] Basophils # (test code = 704-7) 0.1 thou/uL 0.0-0.2 [facility] Name: QUENTIN MCALLISTER : 2005 [facility] Name: QUENTIN MCALLISTER [address] Phys: Amanda [place] [address] : 2005 Age: 17 SEX:F Exam Date: 01/04/23 Status: REG ER Acct: [id number] Loc: [facility]ATHER Pt Unit #: [id number] Report #: [id number] CC: Amanda Tijerina PA-C Nicole Bacon DOPULSECHECKSJX:[id number] CAT SCAN REPORT Report Status: Signed Order # Category/Exam [id number] CT/CT Stone Protocol ([id number]): . Results EXAM: CT abdomen and pelvis without contrast PROVIDED CLINICAL HISTORY: Right flank pain COMPARISON: 03/31/2020 FINDINGS: The visualized lung bases are free of significant opacity. There is no evidence for urinary tract calculi or hydronephrosis. The solid abdominal organs are suboptimally evaluated in the absence of IV contrast material but demonstrate an unremarkable, unenhanced CT appearance. There is no bowel dilatation, inflammatory fat stranding, free fluid or free air apparent. The appendix appears normal. Gallbladder is not significantly distended. The urinary bladder demonstrates no significant abnormality. Bilateral adnexal cysts, presumably physiologic. IUCD is noted centrally within the uterus. The osseous structures demonstrate no concerning lytic or blastic lesions. IMPRESSION: No evidence for urinary tract calculi or hydronephrosis. Reported By: Con Jules MDElectronically Signed Date/Time: 01/04/23 140 Technologist: [email or web address] Dictated Date/Time: 01/04/23 140 Transcribed Date/Time:XR Chest Pa Lat STANDARD [facility] DOB: 2005 [facility] Name: QUENTIN MCALL[facility] [address] Phys: [place] [address] : 2005 Age: 16 SEX:F [phone] Exam Date: 08/08/21 Status: REG ER Acct: [id number] Loc: TMA Pt Unit #: [id number] Report #: [id number] CC: MENDOZA KHAN MD IMAGING SERVICES REPORT Order # Category/Exam [id number] RAD/XR Chest Pa Lat STANDARD ([id number]): . Results EXAM: Chest 2 views: HISTORY: Cough. COMPARISON: None. FINDINGS: There is a normal-sized cardiomediastinal silhouette. The patient is rotated slightly to the righton the frontal view. There is noevidence of consolidation, mass, or pleural effusion. No acute osseous abnormality. IMPRESSION: No evidence of acute cardiopulmonary disease Reported By: Keshav Rivera Electronically Signed Date/Time: 08/08/21 1250 Technologist: Dictated Date/Time: 08/08/21 1249 Transcribed Date/Time:XR Chest Pa Lat [facility] : 2005 [facility] Name: QUENTIN MCALLISTER Cross Phys: [place] [address] : 2005 Age: 15 SEX:F [phone] Exam Date: 02/08/21 Status: REG CLI Acct: [id number] Loc: [facility]ADEKG Pt Unit #: [id number] Report #: [id number] CC: MONIE LUTHER RN IMAGING SERVICES REPORT Order # Category/Exam [id number] RAD/XR Chest Pa Lat STANDARD ([id number]): . Results EXAM: Two views chest PROVIDED CLINICAL HISTORY: Chest pain COMPARISON: 11/09/2018 FINDINGS: Cardiac and mediastinal silhouette appears within normal limits. Lungs appear free of significant opacity. No pleural fluid or pneumothorax apparent. IMPRESSION: No evidence for an acute cardiopulmonary process. Reported By: Con Jules MD Electronically Signed Date/Time: 02/08/211844 Technologist: YANN Dictated Date/Time: 02/08/211843 Transcribed Date/Time:
[2024-06-05 03:17] LABS: Influenza A Ag Negative; Influenza B Ag Negative; SARS-CoV-2 Antigen Rapid Res Negative (Negative)
--- NOTE | 2024-06-05 03:41 | EDPHYS ---
Physician Documentation [facility] Name: Shana Dolan Age: 19 yrs Sex: Female : 2005 Arrival Date: 06/05/2024 Time: 01:37 Bed DX4 Private MD: ED Physician Mor Jansen HPI: 06/05 02:18 This 19 yrs old Female presents to ER via Unassigned with complaints of Sore sp4 Throat, Difficulty Swallowing. 06/06 02:16 Patient presents with acute sore throat and pain on swallowing.. 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 - Infectious Disease History:: Denies. - Social history:: Smoking status: Patient denies any tobacco usage or history of. - Family history:: not pertinent. ROS: 06/06 02:16 Constitutional: Negative for fever, chills, and weight loss, positive sore throat sp4 positive pain on swallowing All other systems are negative, Exam: 02:16 Constitutional: This is a well developed, well nourished patient who is awake, alert, sp4 and in no acute distress. Head/Face: Normocephalic, atraumatic. Eyes: Pupils equal round and reactive to light, extra-ocular motions intact. Lids and lashes normal. Conjunctiva and sclera are not injected. Cornea within normal limits. Periorbital areas with no swelling, redness, or edema. ENT: Nares patent. No nasal discharge, no septal abnormalities noted. Tympanic membranes are normal and external auditory canals are clear. Oropharynx with no redness, swelling, or masses, exudates, or evidence of obstruction, uvula midline. Mucous membranes moist. Neck: Trachea midline, no thyromegaly or masses palpated, and no cervical lymphadenopathy. Supple, full range of motion without nuchal rigidity, or vertebral point tenderness. Chest/axilla: Normal chest wall appearance and motion. Nontender with no deformity. No lesions are appreciated. Cardiovascular: Regular rate and rhythm with a normal S1 and S2. No gallops, murmurs, or rubs. Normal PMI, no JVD. No pulse deficits. Respiratory: Lungs have equal breath sounds bilaterally, clear to auscultation and percussion. No rales, rhonchi or wheezes noted. No increased work of breathing, no retractions or nasal flaring. Abdomen/GI: Soft, with normal bowel sounds. No distension or tympany. No guarding or rebound. No evidence of tenderness throughout. Back: No spinal tenderness. No costovertebral tenderness. Skin: Warm, dry with normal turgor. Normal color with no rashes, no lesions, and no evidence of cellulitis. MS/ Extremity: Pulses equal, no cyanosis. Neurovascular intact. Full, normal range of motion. Neuro: Awake and alert, GCS 15, oriented to person, place, time, and situation. Cranial nerves II-XII grossly intact. Motor strength 5/5 in all extremities. Sensory grossly intact. Psych: Awake, alert, with orientation to person, place and time. Behavior, mood, and affect are within normal limits Vital Signs: 06/05 02:15 BP 125 / 81; Pulse 113; Resp 18; Temp 98.4; Pulse Ox 100% ; Weight 85.73 kg; Height 5 vc1 ft. 6 in. ; Pain 10/10; 03:58 BP 119 / 86; Pulse 99; Resp 17 S; Temp 97.9(O); Pulse Ox 100% on R/A; vc1 02:15 Body Mass Index 30.51 (85.73 kg, 167.64 cm) vc1 02:15 Pain Scale: Adult vc1 [place] Coma Score: 06/06 02:16 Eye Response: spontaneous(4). Motor Response: obeys commands(6). Verbal Response: sp4 oriented(5). Total: 15. MDM: 06/05 02:18 Medical Screening Exam initiated sp4 06/06 02:16 Differential diagnosis: apthous ulcer, bronchitis, gastroesophageal reflux disease, sp4 gingivostomatitis, pharyngitis. Data reviewed: vital signs, nurses notes, lab test result(s). ED course: Patient has signs of tonsillitis, positive strep, discharged home with cefdinir. 06/05 02:15 Order name: Group A Streptococcus Rapid; Complete Time: 03:40 1 06/05 02:15 Order name: COVID-19 Ag + Flu A+B Ag; Complete Time: 03:40 vc1 06/05 02:34 Order name: Test, Urine sp4 Administered Medications: 06/05 03:59 Drug: Ketorolac IM 30 mg IM once Route: IM; Site: right gluteus; vc1 04:01 Follow up: Response: No adverse reaction vc1 03:59 Drug: Acetaminophen PO 1000 mg PO once Route: PO; vc1 04:01 Follow up: Response: No adverse reaction vc1 04:00 Drug: Rocephin (cefTRIAXone) IM 1 grams IM once Route: IM; Site: left gluteus; vc1 04:01 Follow up: Response: No adverse reaction; Medication administered at discharge. vc1 Disposition Summary: 06/05/24 03:40 Discharge Ordered Notes: Location: Home sp4 Problem: new sp4 Symptoms: have improved sp4 Condition: Stable sp4 Diagnosis - Streptococcal tonsillitis sp4 Followup: sp4 - With: Private Physician - When: 7 - 10 days - Reason: Recheck today's complaints Discharge Instructions: - Discharge Summary Sheet sp4 - Tonsillitis, [id number] sp4 Forms: - Work release form vc1 - Patient Portal Instructions sp4 Prescriptions: - cefdinir 300 mg Oral capsule - take 1 capsule ORAL route 2 times per day for 10 days; 20 capsule; Refills: 0, sp4 Product Selection Permitted - Ibuprofen 800 mg Oral Tablet - take 1 tablet ORAL route every 8 hours As needed take with food; 30 tablet; sp4 Refills: 0, Product Selection Permitted Signatures: Dispatcher [employer] Courtney Beckford RN RN vc1 Mor Jansen MD MD sp4
--- NOTE | 2024-06-05 03:41 | ER ---
Nurse's Notes [facility] Name: Shana Dolan Age: 19 yrs Sex: Female : 2005 Arrival Date: 06/05/2024 Time: 01:37 Bed DX4 Private MD: Diagnosis: Streptococcal tonsillitis Presentation: 06/05 02:15 Chief complaint: Patient states: THROAT PAIN SINCE MONDAY, HURTS TO SWALLOW. vc1 Coronavirus screen: Client denies travel out of the [place] in the last 14 days. At this time, the client does not indicate any symptoms associated with coronavirus-19. Ebola Screen: Patient negative for fever greater than or equal to 101.5 degrees Fahrenheit, and additional compatible Ebola Virus Disease symptoms Patient denies exposure to infectious person. Patient denies travel to an Ebola-affected area in the 21 days before illness onset. No symptoms or risks identified at this time. Initial Sepsis Screen: Does the patient meet any 2 criteria? No. Patient's initial sepsis screen is negative. Does the patient have a suspected source of infection? No. Patient's initial sepsis screen is negative. Risk Assessment: Do you want to hurt yourself or someone else? Patient reports no desire to harm self or others. Onset of symptoms was June 02, 2024. Care prior to arrival: None. 02:15 Method Of Arrival: Ambulatory vc1 02:15 Acuity: ISAIAH 3 vc1 Triage Assessment: 02:20 General: Appears in no apparent distress. uncomfortable, ill, obese, Behavior is calm, vc1 cooperative, appropriate for age. Pain: Complains of pain in THROAT Pain currently is 10 out of 10 on a pain scale. Quality of pain is described as sharp. EENT: Reports pain when swallowing Pain is 10 out of 10 on a pain scale. Neuro: Level of Consciousness is awake, alert, obeys commands, Oriented to person, place, time, situation, Appropriate for age. Cardiovascular: Capillary refill < 3 seconds Patient's skin is warm and dry. Respiratory: Airway is patent Respiratory effort is even, unlabored, Respiratory pattern is regular, symmetrical, Breath sounds are clear bilaterally. GI: No deficits noted. No signs and/or symptoms were reported involving the gastrointestinal system. : No deficits noted. No signs and/or symptoms were reported regarding the genitourinary system. Derm: Skin is intact, is healthy with good turgor, Skin is dry, Skin is normal, Skin temperature is warm. Musculoskeletal: Circulation, motion, and sensation intact. Range of motion: intact in all extremities. 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 - Infectious Disease History:: Denies. - Social history:: Smoking status: Patient denies any tobacco usage or history of. - Family history:: not pertinent. Screenin:19 [facility] ED Fall Risk Assessment (Adult) History of falling in the last 3 months, vc1 including since admission No falls in past 3 months (0 pts) Confusion or Disorientation No (0 pts) Intoxicated or Sedated No (0 pts) Impaired Gait No (0 pts) Mobility Assist Device Used No (0 pt) Altered Elimination No (0 pt) Score/Fall Risk Level 0 - 2 = Low Risk Oriented to surroundings, Maintained a safe environment, Educated pt \T\ family on fall prevention, incl call for assistance when getting out of bed, Hourly rounding (assess needs \T\ fall precautionary measures) done. Abuse screen: Denies threats or abuse. Nutritional screening: No deficits noted. Tuberculosis screening: No symptoms or risk factors identified. Assessment: 02:15 General: see triage assessment. Respiratory: No deficits noted. Airway is patent vc1 Respiratory effort is even, unlabored, Respiratory pattern is regular, symmetrical. 03:58 Reassessment: Patient appears in no apparent distress at this time. No changes from vc1 previously documented assessment. Patient and/or family updated on plan of care and expected duration. Pain level reassessed. Patient is alert, oriented x 3, equal unlabored respirations, skin warm/dry/pink. 04:01 EENT: Throat is reddened. vc1 Vital Signs: 02:15 BP 125 / 81; Pulse 113; Resp 18; Temp 98.4; Pulse Ox 100% ; Weight 85.73 kg; Height 5 vc1 ft. 6 in. ; Pain 10/10; 03:58 BP 119 / 86; Pulse 99; Resp 17 S; Temp 97.9(O); Pulse Ox 100% on R/A; vc1 02:15 Body Mass Index 30.51 (85.73 kg, 167.64 cm) vc1 02:15 Pain Scale: Adult vc1 [place] Coma Score: 03 02:16 Eye Response: spontaneous(4). Motor Response: obeys commands(6). Verbal Response: sp4 oriented(5). Total: 15. ED Course: 06/05 01:43 Patient arrived in ED. gm2 02:18 Mor Jansen MD is Attending Physician. sp4 02:18 Triage completed. vc1 02:19 Arm band placed on right wrist. vc1 02:20 Patient has correct armband on for positive identification. Provided Education on: vc1 SWABS. 03:58 No provider procedures requiring assistance completed. Patient did not have IV access vc1 during this emergency room visit. Administered Medications: 03:59 Drug: Ketorolac IM 30 mg IM once Route: IM; Site: right gluteus; vc1 04:01 Follow up: Response: No adverse reaction vc1 03:59 Drug: Acetaminophen PO 1000 mg PO once Route: PO; vc1 04:01 Follow up: Response: No adverse reaction vc1 04:00 Drug: Rocephin (cefTRIAXone) IM 1 grams IM once Route: IM; Site: left gluteus; vc1 04:01 Follow up: Response: No adverse reaction; Medication administered at discharge. vc1 Medication: 02:21 VIS not applicable for this client. vc1 Outcome: 03:40 Discharge ordered by . sp4 03:58 Discharged to home ambulatory, vc1 03:58 Condition: stable 03:58 Discharge instructions given to patient, Instructed on discharge instructions, follow up and referral plans. medication usage, Demonstrated understanding of instructions, follow-up care, medications, Prescriptions given X 2, 04:01 Patient left the ED. vc1 Signatures: Courtney Devlin RN RN vc1 Mor Jansen MD MD sp4 Nathalie Galicia gm2
[2024-06-05] MEDS ORDERED: CEFTRIAXONE 1000 MG/VIAL ONE (03:50)
[2024-06-05] MEDS ORDERED: KETOROLAC 30 MG/ML INJ ONE (03:50)
[2024-06-05] MEDS ORDERED: ACETAMINOPHEN 500 MG TAB ONE (03:50)
[2024-06-05] MEDS ORDERED: LIDOCAINE 1% MPF 2 ML AMPULE ONE (03:51)
[2024-06-05 04:15] LABS: Specific Gravity 1.029 (1.005-1.030)
[2024-06-05 12:42] VITALS: BP 119/86; TEMP 97.9; O2SAT 100
== END 2024-06-05 04:01 | disposition home or self-care (01) ==
LOC: ER 01:37
DX: J03.00 Acute streptococcal tonsillitis, unspecified (principal); Z11.52 Encounter for screening for COVID-19
CPT/HCPCS: 36415; 81025; 87428; J0696